=== PATIENT | male | born 1985 | race Two or more races ===

== ENCOUNTER 2019-06-05 22:52 | Emergency (ER) | payer OTHER ==
[~2019-06-05] VITALS: Ht 175.3 cm; Wt 115.7 kg
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
[2019-06-05 23:08] VITALS: BP 124/81
[2019-06-06] MEDS ORDERED: ACETAMINOPHEN 500 MG TABLET PO ONE ×2 (00:05)
--- NOTE | 2019-06-06 08:02 | RAD ---
Left ankle 3 views. HISTORY: Twisted ankle, pain lateral malleolus 3 views were taken of the left ankle. There is not evidence of an acute fracture or osseous abnormality. IMPRESSION: 1. No fracture noted in the left ankle. Electronically signed by: Benji Pringle MD (06/06/2019 7:59 AM) [facility]
== END 2019-06-06 00:15 | disposition home or self-care (01) ==
LOC: ER 22:52
DX: S93.402A Sprain of unspecified ligament of left ankle, initial encounter (principal); X50.1XXA Overexertion from prolonged static or awkward postures, initial encounter; Y93.02 Activity, running; Y92.89 Other specified places as the place of occurrence of the external cause; Y99.0 Civilian activity done for income or pay
CPT/HCPCS: 29515; 73610; 99284